=== PATIENT | male | born 1985 | race Two or more races ===

== ENCOUNTER 2024-06-08 12:57 | Inpatient (IN) | payer BC, SELFPAY ==
[2024-06-08 13:08] VITALS: PULSE 83; RESP 20; O2SAT 98
--- NOTE | 2024-06-08 13:26 | XR_ITS ---
Examination: CT brain head without contrast. 2-D sagittal coronal reconstructions Date and time of exam:June 08, 2024 1345 hours INDICATIONS: Onset severe dizziness today CTDI: vol (mGy):4059 59 1187 Technique: Multiple CT axial sections of the brain have been obtained, 5 mm slice thickness. Contrast has not been administered. 2-D sagittal, coronal reconstructions have been obtained Low dose protocols were performed. One or more of the following dose reduction techniques were used; automated exposure control, adjustment of the mA and/or KV according to patient size, use of iterative reconstruction technique. Findings: No significant ventricular enlargement. Intra-axial or extra-axial hemorrhage density is not seen. No mass effect or midline shift Basal cisterns are not remarkable. Fourth ventricle is midline. Cranial vault intact. Impression: Negative for acute hemorrhage, mass effect or midline shift Advise clinical correlation follow-up accordingly
--- NOTE | 2024-06-08 13:26 | XR_ITS ---
Examination: PA chest single view TECHNIQUE: Upright PA chest single view Exam date and time: June 08, 2024 1447 hours INDICATIONS: Onset chest pain today. FINDINGS: Mild prominence of ventricle No pulmonary edema Intact osseous structures IMPRESSION: No pneumonia or pulmonary edema
--- NOTE | 2024-06-08 13:26 | EKG_ITS ---
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
--- NOTE | 2024-06-08 13:26 | PD.EDRME ---
Rapid Medical Screening Exam RME Arrival date/time: 06/08/24 12:57 38-year-old male with diabetes on Mounjaro currently under treatment for UTI presents emergency department today with complaints of syncopal episode today Chief Complaint: Syncope / Near Syncope
[2024-06-08 13:27] VITALS: BP 104/71; PULSE 87; RESP 16; TEMP 36.9; O2SAT 99; BMI 34.2
[2024-06-08 14:00] LABS: Basophils % (Auto) 0 % (0-2.5); Eosinophils % (Auto) 0 % (0-10); Hematocrit 38.9 % (41.0-53.0); Hemoglobin 13.7 g/dL (13.5-16.0); Immature Granulocytes % (Auto) 0 % (0-0); Immature Granulocytes Auto 0.06 Thou/mm3 (0.00-0.00); Lymphocytes # (Auto) 2.3 Thou/mm3 (1.0-4.8); Lymphocytes % (Auto) 16 % (10-50); Mean Corpuscular HGB Conc 35.2 g/dl (31.0-37.0); Mean Corpuscular Hemoglobin 27.8 pg (25.0-35.0); Mean Corpuscular Volume 79 fL (80-100); Monocytes # (Auto) 1.3 Thou/mm3 (0.0-0.8); Monocytes % (Auto) 9 % (0-12); Neutrophils # (Auto) 10.6 Thou/mm3 (1.8-7.7); Neutrophils % (Auto) 74 % (37-80); Nucleated Red Blood Cell % 0 /100 WBC (0); Platelet Count 225 Thou/mm3 (140-440); RDW Standard Deviation 38.1 fL (35.1-43.9); Red Blood Count 4.93 Miln/mm3 (4.50-5.90); White Blood Count 14.4 Thou/mm3 (3.8-10.6)
[2024-06-08 14:10] LABS: Glucose Estimated Average 88 mg/dL (80-131); Hemoglobin A1C 4.7 % Hgb (4.8-6.0)
[2024-06-08 14:28] LABS: Alanine Aminotransferase 50 U/L (10-49); Albumin/Globulin Ratio 1.5 (1.2-2.2); Alkaline Phosphatase 88 U/L (46-116); Anion Gap 6 (7-16); Aspartate Amino Transferase 38 U/L (0-34); BUN/Creatinine Ratio 21 Ratio (12-20); Bilirubin,Total 0.6 mg/dL (0.3-1.2); Blood Urea Nitrogen 21 mg/dL (9-23); Calcium 9.1 mg/dL (8.3-10.6); Calcium (Corrected) 9.1 mg/dL (8.5-10.1); Carbon Dioxide 27.5 mMol/L (20.0-31.0); Chloride 103 mMol/L (98-107); Estimated Creatinine Clearance 114.8 mL/min (>60); Globulin 2.7 gm/dL (2.3-3.5); Glucose 105 mg/dL (74-106); Osmolality,Calculated 274 (275-295); Potassium 3.4 mMol/L (3.4-5.1); Sodium 136 mMol/L (136-145); Total Protein 6.7 gm/dL (5.7-8.2); Troponin I < 0.020 ng/mL (0.0-0.045); eGFR > 60 See Note
[2024-06-08 15:08] LABS: Collection Type, Urine Clean Catch
[2024-06-08 15:29] LABS: Bacteria,Urine 4+; Bilirubin,Urine Negative (Negative); Blood,Urine 1+ (Negative); Clarity,Urine Turbid (Clear/Hazy); Color,Urine Yellow (Lt Yel-Yel); Glucose, Urine Negative (Negative); Hyaline Casts,Urine < 1 /hpf (0-1); Ketones,Urine Negative (Negative); Leukocyte Esterase,Urine Positive (Negative); Nitrite,Urine Positive (Negative); Protein,Urine 2+ (Neg - Trace); RBC,Urine 7 /hpf (0-3); Specific Gravity,Urine 1.026 (1.001-1.035); Squamous Epithelial Cell,Urine < 1 /hpf (0-5); WBC,Urine 368 /hpf (0-5)
[2024-06-08 16:00] LABS: Culture Indicated,Urine Yes
[2024-06-08 17:22] LABS: Lactate (Lactic Acid) 1.7 mMol/L (0.4-2.0)
--- NOTE | 2024-06-08 17:32 | EDNOTE_ITS ---
<Statement entered by Jessi Camarena MD - 06/17/24 19:36> I, Jessi Camarena MD, have reviewed the history, exam, and assessment of the patient. I have evaluated the patient independently and agree with the plan of care documented by [ ]. All diagnostic studies were reviewed and discussed. I confirm the diagnosis as documented by the Resident. I was present during the Medical Decision Making for this patient. The patient's plan of care was created between myself and the Resident and consistent with our discussion of the patient's case. ED Syncope RME/HPI General Chief Complaint: Syncope / Near Syncope Stated Complaint: SYNCOPAL EPISODE / LOC; RECENT UTI Time Seen by Provider: 06/08/24 18:27 Arrival date/time: 06/08/24 12:57 RME / HPI RME / HPI narrative: 06/08/24 12:57 38-year-old male with diabetes on Mounjaro currently under treatment for UTI presents emergency department today with complaints of syncopal episode today. --------- Main ED Evaluation: Patient is a 38-year-old male with past medical history of obesity and prediabetes who presented to the ED today with syncopal episode today while he was outside of a [employer]. Patient states he thinks he had momentary loss of consciousness and he was helped by bystanders and had hit the back of his head, now has a palpable bump but denies any head pain or headache. Patient states that he did feel quite dehydrated today and did not have as much to eat or drink. Part of this is secondary to the Mounjaro that he has been on and notes more than 50 lb weight loss in the past 1 year. About 1 week back on 05/31, patient had started feeling some UTI symptoms with dysuria and darker colored urine. He started having fevers and chills especially notable at night starting 4 days ago. Patient reports he has been on amoxicillin for the last 20 days due to recent crown infections and wisdom teeth extractions. Yesterday, he saw his PCP for the UTI and was prescribed nitrofurantoin which he just started today. Otherwise, the patient is denying any nausea, vomiting, abdominal pain, groin pain, flank pain, hematuria, chest pain, or shortness of breath. complaint: collapsed Onset (ago): minute(s) Duration of episode: 1 Prodromal symptoms: lightheaded Witnessed: yes - by bystander Context: recent illness Injuries sustained associated with event: head Current symptoms: back to baseline Related Data Allergies Allergy/AdvReac Type Severity Reaction Status Date / Time No Known Allergies Allergy Verified 06/08/24 21:10 Review of Systems Review of Systems Systems Reviewed: All systems reviewed, normal except as documented ED Exam Narrative Physical exam: Physical Exam General: Awake and in no acute distress. Conversational and non-toxic appearing. HEENT: Normocephalic, atraumatic, mucous membranes moist. Heart: Regular rate and rhythm, no murmurs. Lungs: Clear to auscultation with no wheezing or crackles. Abdomen: Soft, nondistended, nontender, positive bowel sounds. ?No guarding or rebound tenderness. Back: No CVA tenderness. Neurologic: Alert and oriented x3, no gross neurological deficit, and patient able to move all 4 extremities. Extremities: No edema. Skin: No rash or ecchymoses. Course Quality Measures none Orders Category Date Time Status COVID-19 Screening Questionnaire NOW Care 06/08/24 19:53 Active Decision to Admit X1 Care 06/08/24 19:53 Active EKG (ED ONLY) *Do not use* NOW Care 06/08/24 13:[address] abdomen pelvis wo con Stat Exams 06/08/24 17:[address] head/brain wo con Stat Exams 06/08/24 13:26 Completed EKG (ED Only) Stat Exams 06/08/24 13:26 Draft XR chest 1V portable Stat Exams 06/08/24 13:26 Completed A1C [Glycohemoglobin w (eAG)] Stat Lab 06/08/24 13:40 Completed Blood Culture (Lab) Stat Lab 06/08/24 16:58 Received CBC Stat Lab 06/08/24 13:40 Completed Chlamydia/GC/TV - PCR Stat Lab 06/08/24 Ordered Comprehensive Metabolic Panel Stat Lab 06/08/24 13:40 Completed Lactate (Lactic Acid) Stat Lab 06/08/24 16:58 Completed Procalcitonin Stat Lab 06/08/24 16:58 Completed Troponin I Stat Lab 06/08/24 13:40 Completed UA, C/S IF [Urinalysis, C/S if Indicated] Stat Lab 06/08/24 14:55 Completed Urine Culture Stat Lab 06/08/24 14:55 Received Acetaminophen Tab [Tylenol ES Tab] Med 06/08/24 18:15 Discontinued 1,000 mg PO X1 ONE Ketorolac Inj [Toradol Inj] Med 06/08/24 18:28 Discontinued 30 mg IVP X1 ONE Sodium Chloride 0.9% 1000 ml [Ns] 1,000 ml Med 06/08/24 16:29 Discontinued IV 999 mls/hr cefTRIAXone [Rocephin] 1,000 mg Med 06/08/24 16:31 Discontinued Sodium Chloride 0.9% [Ns] 50 ml IV X1 Vital Signs Vital signs: Vital Signs Temperature 98.4 F 06/08/24 13:27 Pulse Rate 87 06/08/24 13:27 Respiratory Rate 16 06/08/24 13:27 Blood Pressure 104/71 06/08/24 13:27 Pulse Oximetry (%) 99 06/08/24 13:27 Oxygen Delivery Method Room Air 06/08/24 13:27 Procedures -ED EKG Interpretation #1: Date of EK06/08/24 Time of EK:31 Rate: 91 Interpretation: Interpreted by me EKG Impression: Normal sinus rhythm Syncope MDM Narrative MDM Narrative:: Workup reveals positive UA for UTI and leukocytosis. Sepsis alert was called at 17:53 due to temperature 102, pulse rate 108, leukocytosis of 14.4. Patient to be given IV fluids and IV ceftriaxone. 18:00 Care of the patient will be handed off to the evening provider, Dr. Adames, to follow up on CT abdomen/pelvis result. Patient data External records reviewed:: None Clinical information provided by:: patient Social determinants that could affect healthcare access:: none Patient has the following chronic illnesses:: None How is presenting disease/condition affected by chronic disease/condition?: uneffected by Evaluation data The following diagnostics were reviewed and interpreted by me:: lab results and radiology exam(s) Lab and/or radiology exams considered but not ordered:: Ordered Interpretation Summary: CT brain head without contrast. Findings: No significant ventricular enlargement. Intra-axial or extra-axial hemorrhage density is not seen. No mass effect or midline shift Basal cisterns are not remarkable. Fourth ventricle is midline. Cranial vault intact. Impression: Negative for acute hemorrhage, mass effect or midline shift Advise clinical correlation follow-up accordingly Chest X-Ray: Negative for pneumonia, according to my interpretation. Medications / Prescriptions Medications or Prescriptions considered but not ordered:: Given Medication administrations:: Medication Administration History Acetaminophen (Acetaminophen 325 Mg Tablet) 650 mg PO Q6H PRN PRN Reason: PAIN SCALE 1-3 (mild Stop: 07/08/24 20:43 Acetaminophen (Acetaminophen 325 Mg Tablet) 650 mg PO Q6H PRN PRN Reason: Fever >100 Stop: 07/08/24 20:43 Dextrose (Dextrose 50%-Water Inj 50 Ml Syringe) 25 ml IV Q15MIN PRN PRN Reason: BG 50-70 responsive npo pt Stop: 07/08/24 20:47 Dextrose (Dextrose 50%-Water Inj 50 Ml Syringe) 50 ml IV Q15MIN PRN PRN Reason: BG <50 OR BG <70 & pt unresponsive Stop: 07/08/24 20:47 Glucagon (Glucagon Inj 1 Mg Vial) 1 mg IM Q15MIN PRN PRN Reason: BG <70, and no IV access Ceftriaxone Sodium/Dextrose (Rocephin/D5w 1gm Iv Premix) 50 mls @ 100 mls/hr IV QDAY CHRIS Stop: 06/16/24 08:59 Insulin Human Lispro (Insulin Lispro (Admelog) 1 Unit/0.01 Ml Unit) 0 unit SC [facility]; Protocol Stop: 07/08/24 20:59 Last Admin: 06/08/24 21:14 Dose: Not Given Documented By: Non-Admin Reason: Glucose, LOW Comments: no insulin given FSBS below sliding scale Ondansetron HCl (Ondansetron Inj 2 Mg/Ml Inj 2 Ml) 4 mg IV Q6H PRN; Protocol PRN Reason: NAUSEA OR VOMITING Stop: 07/08/24 20:43 Discontinued Medications Acetaminophen (Acetaminophen 500 Mg Tablet) 1,000 mg PO X1 ONE Stop: 06/08/24 18:16 Last Admin: 06/08/24 18:46 Dose: 1,000 mg Documented By: Sodium Chloride (Ns) 1,000 mls @ 999 mls/hr IV .Q1H1M ONE Stop: 06/08/24 17:29 Last Infusion: 06/08/24 20:47 Dose: Infused Documented By: Admin: 06/08/24 18:46 Dose: 999 mls/hr Documented By: Ceftriaxone Sodium 1,000 mg/ (Sodium Chloride) 50 mls @ 100 mls/hr IV X1 ONE Stop: 06/08/24 17:00 Last Infusion: 06/08/24 20:47 Dose: Infused Documented By: Admin: 06/08/24 19:03 Dose: 100 mls/hr Documented By: SF Ketorolac Tromethamine (Ketorolac Inj 30 Mg/Ml Vial) 30 mg IVP X1 ONE Stop: 06/08/24 18:29 Last Admin: 06/08/24 19:02 Dose: 30 mg Documented By: SF Given Consultations Consultation(s) initiated? (list below): No Diagnosis Syncope Differential Diagnosis: other Most likely diagnosis given after review of the tests above:: Syncope secondary to hypoglycemia, sepsis, UTI Admission Indicated Admission indicated?: not indicated Admission Request Was there a request for admission?: No Disposition Plan Disposition Plan: other (specify) Discharge Plan Plan Patient Disposition: Admit Acute Care w/in Hospital Problem List Clinical Impression: Acute UTI, Sepsis, Acute pyelonephritis
[2024-06-08 17:51] VITALS: BP 149/75; PULSE 108; RESP 21; TEMP 38.9; O2SAT 97
--- NOTE | 2024-06-08 17:53 | XR_ITS ---
Examination: CT abdomen and pelvis without contrast. Coronal 3-D reconstructions. Sagittal 2-D reconstructions. Date and time of exam:May 1829 hrs. Indications: Urinary tract infections beginning 3 days ago, with sepsis today CTDI: vol (mGy): 9.72 DLP: (mGycm): 631 Technique: Axial images of the abdomen have been obtained, 3 mm slice thickness Intravenous contrast material has not been administered. Low dose protocols were performed. One or more of the following dose reduction techniques were used; automated exposure control, adjustment of the mA and/or KV according to patient size, use of iterative reconstruction technique. Findings: No focal liver or splenic lesions Hepatomegaly 22 cm No pancreatic or adrenal mass Mild bilateral perinephric stranding Aorta normal size Normal appendix No renal or ureteral calculi, no hydronephrosis No prostatomegaly No bladder mass or bladder calculi. Grade 1 spondylolisthesis L5 on S1 with moderate degenerative disc disease at this level Impression: Hepatomegaly 22 cm Bilateral perinephric stranding, consider urinary tract infection No hydronephrosis or ureteral calculi No bladder mass or bladder calculi
[2024-06-08 17:54] LABS: Procalcitonin 0.31 ng/ml (0.0-0.49)
--- NOTE | 2024-06-08 17:56 | PC.NURSE ---
Sepsis alert called on patient at 1753. FSBS check at same time 61. [place] juice given. patient shaking but undetermined if from glucose or temperature. Patient alert and orientedx4. Provider aware.
--- NOTE | 2024-06-08 18:02 | PD.EDADDENDU ---
Emergency Room Addendum <Sophia Pollard - Last Filed: 06/08/24 19:49> Addendum Narrative: I took over the care from Dr. Ellington, attending Dr. Camarena at 6 PM on 06/08/2024, see her notes for complete H&P and ED course. Please refer to the emergency department record for history and examination from initial visit. I reviewed all diagnostic test results. My interpretation of the EKG is My interpretation of the chest x-ray is My review of the CT report is Blood tests and urine tests At this point, diagnoses include Treatment here included Significant improvement I discussed the case with our hospitalist. About the presentation and exam and diagnostics and treatments here. And need of further care in the hospital. Will accept the patient. <Reza Adames MD - Last Filed: 06/08/24 19:55> Addendum Narrative: I took over the care from Dr. Ellington (attending Dr. Camarena) at 6 PM on 06/08/2024, see her notes for complete H&P and ED course. I reviewed all diagnostic test results. Remarkable for UTI and pyelonephritis and sepsis. Treatment here included IV fluid and Tylenol and Toradol and Rocephin. I discussed the case with our hospitalist. About the presentation and exam and diagnostics and treatments here. And need of further care in the hospital. Will accept the patient. Reza Adames MD
[2024-06-08 18:46] VITALS: TEMP 38.9
[2024-06-08] MEDS: ACETAMINOPHEN 500 MG TABLET 1000 MG PO (18:46)
[2024-06-08] MEDS: SODIUM CHLORIDE 0.9% 1000 ML 1,000 ML 999 ML IV (18:46)
[2024-06-08 19:02] VITALS: TEMP 38.9
[2024-06-08] MEDS: KETOROLAC INJ 30 MG/ML VIAL IVP (19:02)
--- NOTE | 2024-06-08 20:49 | ESHP_ITS ---
Documentation for date of: 06/08/24 [facility] History of Present Illness History of present illness: This is a 38-year-old male with PMHx of obesity/?T2DM on MOUNJARO, presenting with 2 weeks of urinary symptoms. He states 2 weeks of waxing and waning burning sensation while urinating, and dark/cloudy urine. Has had a UTI about 10 years ago, believes symptoms felt the same. He has been taking IBUPROFEN and drinking extra fluids which slightly helped. Symptoms have improved however worsened over the last 3 days. Today he was feeling dizzy, lightheaded, had fever and sweats that started this morning at work and worsening dysuria. He saw his PCP this morning who started NITROFURANTOIN. He took 1 dose but decided to come in given acute worsening of symptoms. Denies headaches, loss of consciousness, fall or trauma, chest pain, shortness of breath, abdominal pain, N/V/D/C, or abnormal changes in his weight. ED COURSE: T102, HR 102, BP 120/69, RR 20, satting 97% on room air. WBC 14.4, Hgb 13.7, MCV 79. Chemistry showed AST 38, ALT 50, otherwise within normal limits including tropes, lactic acid, and Pro-Calc. UA positive for UTI. Head CT with negative for acute pathology. CXR negative for active pulmonary disease. CT abdomen showed bilateral perinephric stranding, hepatomegaly. Negative influenza A/B. PMHx: T2DM PSHx: None MEDS: No chronic medication. ALLERGIES: NKA FHx: No relevant family history. SH: Occassional alcohol use, no tobacco or drug use. Last sexually active 6 months ago. Exam Vital Signs Temp Pulse Resp BP Pulse Ox O2 Del Method 102.0 F H 108 H 21 H 149/75 H 97 Room Air 06/08/24 19:02 06/08/24 17:51 06/08/24 17:51 06/08/24 17:51 06/08/24 17:51 06/08/24 17:51 Narrative Exam Mostly normal exam. GENERAL * Normal-appearing adult male, NAD, diaphoretic. HEENT * NCAT.?MAGGIE. Oral mucosa is moist. Patent Nares NECK * Supple, nontender, no thyromegaly, no meningismus, no JVD, no step offs CHEST * RRR, no m/g/r * CTAB, no w/r/r. Symmetrical chest rise. No intercostal subcostal retraction * Atraumatic, nontender, no crepitus, symmetrical expansion. ABDOMEN * Soft, flat, nontender. No guarding/rebound tenderness/masses. * Bowel sounds presents EXTREMITIES * Nontender, no cyanosis, no edema * No edema/cyanosis.? SKIN * Warm and dry, no jaundice/rashes. NEUROMUSCULAR * No lumbar or midline, no CVA, no paraspinal muscle spasm or tenderness. * Moves all 4 extremities well, with full ROM and good CSM. * GA x4, CN II-XII grossly intact. * No focal neurologic deficits. PSYCHIATRY * Normal mood and affect, cooperative, no SI or HI or hallucinations. Results: Labs 06/08/24 13:40 06/08/24 13:40 Labs: Short CBC 06/08/24 Range/Units 13:40 WBC 14.4 H (3.8-10.6) Thou/mm3 Hgb 13.7 (13.5-16.0) g/dL Hct 38.9 L (41.0-53.0) % Plt Count 225 (140-440) Thou/mm3 BMP 06/08/24 13:40 Sodium 136 Potassium 3.4 Chloride 103 Carbon Dioxide 27.5 BUN 21 Creatinine 1.0 Glucose 105 Calcium 9.1 Cardiac Enzymes 06/08/24 Range/Units 13:40 Troponin I < 0.020 (0.0-0.045) ng/mL Liver Function 06/08/24 Range/Units 13:40 Total Bilirubin 0.6 (0.3-1.2) mg/dL AST 38 H (0-34) U/L ALT 50 H (10-49) U/L Alkaline Phosphatase 88 (46-116) U/L Albumin 4.0 (3.5-5.0) gm/dL Urine 06/08/24 Range/Units 14:55 Urine Color Yellow (Lt Yel-Yel) Urine Clarity Turbid A (Clear/Hazy) Urine pH 6.0 (5.0-7.0) Ur Specific [place] 1.026 (1.001-1.035) Urine Protein 2+ A (Neg - Trace) Urine Glucose (UA) Negative (Negative) Quality Measures Quality Measures none Medications Home Medications and Allergies Home Medications ?Medication ?Instructions ?Recorded ?Confirmed ?Type lorazepam 2 mg tablet 2 mg PO BID PRN anxiety 05/2906/09/24 History terbinafine HCl 250 mg tablet mg 06/09/24 History thyroid (pork) 120 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 120 mg PO .3x/week 06/09/24 History Thyroid) tirzepatide 15 mg/0.5 mL 15 mg subcut QWEEK 06/09/24 06/09/24 History subcutaneous pen injector (Mounjaro) Allergies Allergy/AdvReac Type Severity Reaction Status Date / Time No Known Allergies Allergy Verified 06/08/24 21:10 Visit Medications Discontinued Medications Acetaminophen (Acetaminophen 500 Mg Tablet) 1,000 mg PO X1 ONE Stop: 06/08/24 18:16 Last Admin: 06/08/24 18:46 Dose: 1,000 mg Sodium Chloride (Ns) 1,000 mls @ 999 mls/hr IV .Q1H1M ONE Stop: 06/08/24 17:29 Last Infusion: 06/08/24 20:47 Dose: Infused Ceftriaxone Sodium 1,000 mg/ (Sodium Chloride) 50 mls @ 100 mls/hr IV X1 ONE Stop: 06/08/24 17:00 Last Infusion: 06/08/24 20:47 Dose: Infused Ketorolac Tromethamine (Ketorolac Inj 30 Mg/Ml Vial) 30 mg IVP X1 ONE Stop: 06/08/24 18:29 Last Admin: 06/08/24 19:02 Dose: 30 mg Assessment & Plan Plan In summary: 38-year-old male with PMHx of obesity/?T2DM on MOUNJARO, admited for pyelonephritis. Sepsis secondary to pyelonephritis Lactic acidosis (resolved) Presenting with 2 weeks of dysuria, worsened over the last 3 days. New onset fever started today. Met 4/4 SIRS with EOD i.e. lactic acidosis resolved after 1.0 L NS. UA showed UTI. CT showed perinephric stranding bilaterally. Had a UTI 10 years ago. Low concern for STDs, last sexually active 6 months ago, denies penile discharge. ? Continue CEFTRIAXONE (06/08 to present) ? Will give another 2L NS bolus ? Pending blood and urine culture ? Daily labs T2DM Obesity Recently started on MOUNJARO for weight loss. States he has been diagnosed with diabetes, unclear if he is diabetic. A1c 4.7, GLUCOSE 105. ? INSULIN sliding scale ? Accu-Cheks ? Daily labs Mild transaminitis Hepatomegaly Mild LFT elevation likely in setting of sepsis. CT abdomen showed hepatomegaly 22 cm, likely incidental. Anticipate improvement with fluids. ? Daily CMP ? Consider further workup as indicated, for outpatient follow-up for hepatomegaly. Health maintenance Diet: CHO consistent GI prophylaxis: Not indicated DVT prophylaxis: LOVENOX Antibiotics: CEFTRIAXONE CODE STATUS: Full code Disposition: Treating UTI/sepsis, pending urine/blood culture Patient case was discussed with attending, Bhavik Jimenez MD. Eneida Marquez, PGYI
[2024-06-08 21:08] VITALS: BP 120/69; PULSE 102; RESP 20; TEMP 37.6; O2SAT 97
[2024-06-09] VITALS (12 sets, daily range): BP systolic 117–136; BP diastolic 64–82; PULSE 88–112; RESP 17–18; TEMP 36.9–39; O2SAT 97–99
[2024-06-09] MEDS: SODIUM CHLORIDE 0.9% 1000 ML 1,000 ML 999 ML IV ×2 (00:05→01:21)
[2024-06-09] MEDS: ACETAMINOPHEN 325 MG TABLET 650 MG PO ×3 (00:09→13:45)
--- NOTE | 2024-06-09 04:15 | PC.NURSE ---
urine specimen for chlamydia sent to lab.
[2024-06-09 05:38] LABS: Basophils % (Auto) 0 % (0-2.5); Eosinophils % (Auto) 0 % (0-10); Hematocrit 34.2 % (41.0-53.0); Hemoglobin 12.1 g/dL (13.5-16.0); Immature Granulocytes % (Auto) 0 % (0-0); Immature Granulocytes Auto 0.06 Thou/mm3 (0.00-0.00); Lymphocytes # (Auto) 2.3 Thou/mm3 (1.0-4.8); Lymphocytes % (Auto) 15 % (10-50); Mean Corpuscular HGB Conc 35.4 g/dl (31.0-37.0); Mean Corpuscular Hemoglobin 27.7 pg (25.0-35.0); Mean Corpuscular Volume 78 fL (80-100); Monocytes # (Auto) 1.8 Thou/mm3 (0.0-0.8); Monocytes % (Auto) 12 % (0-12); Neutrophils # (Auto) 11.6 Thou/mm3 (1.8-7.7); Neutrophils % (Auto) 73 % (37-80); Nucleated Red Blood Cell % 0 /100 WBC (0); Platelet Count 173 Thou/mm3 (140-440); RDW Standard Deviation 38.1 fL (35.1-43.9); Red Blood Count 4.37 Miln/mm3 (4.50-5.90); White Blood Count 15.8 Thou/mm3 (3.8-10.6)
[2024-06-09 06:10] LABS: Alanine Aminotransferase 34 U/L (10-49); Albumin, Serum 3.5 gm/dL (3.5-5.0); Albumin/Globulin Ratio 1.5 (1.2-2.2); Alkaline Phosphatase 79 U/L (46-116); Anion Gap 6 (7-16); Aspartate Amino Transferase 27 U/L (0-34); BUN/Creatinine Ratio 18 Ratio (12-20); Bilirubin,Total 0.6 mg/dL (0.3-1.2); Blood Urea Nitrogen 14 mg/dL (9-23); Calcium 8.5 mg/dL (8.3-10.6); Calcium (Corrected) 8.9 mg/dL (8.5-10.1); Chloride 107 mMol/L (98-107); Creatinine (Component) 0.8 mg/dL (0.6-1.3); Globulin 2.3 gm/dL (2.3-3.5); Glucose 102 mg/dL (74-106); Magnesium 1.5 mg/dL (1.6-2.6); Osmolality,Calculated 279 (275-295); Phosphorous 3.3 mg/dL (2.4-5.1); Potassium 3.7 mMol/L (3.4-5.1); Sodium 140 mMol/L (136-145); Total Protein 5.8 gm/dL (5.7-8.2); eGFR > 60 See Note
[2024-06-09] MEDS: INSULIN LISPRO (AdmeLOG) 1 UNIT/0.01 ML UNIT SC (07:35)
[2024-06-09] MEDS: cefTRIAXone/D5w 1gm IV premix 50 ML IV (08:37)
[2024-06-09] MEDS: Magnesium Sulfate 2 GM Ivpb 2 GM/50 ML BAG IV (08:38)
--- NOTE | 2024-06-09 09:28 | PC.SS ---
Patient Abiodun Brunson is a 38 Year old male admitted for Sepsis Pyelonephritis. SS met with patient at bedside to discuss discharge plan. Patient reports he lives at home with his son. Patient reports his mother, Lala Perry is her surrogate decision. Patient does not utilize any source of DME and able to complete ADL'S. Choice of pharmacy is [facility]. PCP is Dr. Srini valencia. 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 At time of discharge patient will return home. Family will provide transportation. Next of Kin: mother, Lala perry Discharge plan: home
[2024-06-09 09:42] LABS: Chlamydia trachomatis PCR Negative (Not Detect); Neisseria Gonorrhoeae DNA PCR Negative (Not Detect); Trichomonas Negative (Negative)
--- NOTE | 2024-06-09 14:32 | PC.SS ---
SS follow up note; Patient has been having fevers, Pending Cultures.
--- NOTE | 2024-06-09 17:11 | ESPR_ITS ---
<Statement entered by Deisy Cuenca MD - 06/09/24 17:37> I discussed with and supervised my co-resident involved in the care of this patient. I agree with the assessment and plan as documented above. Patient seen at bedside. Denies fever overnight. States is feeling better. urine culture grew gram negative rods. Will continue IV antibiotics and follow up cultures tomorrow. Deisy Cuenca MD PGY-3 Documentation for date of: 06/09/24 Subjective Subjective Interval history: Patient seen and examined at bedside. No major complaints, no events overnight. Dysuria has improved with no pain. Patient has remained afebrile, vitals stable. WBC is uptrended 15.8. Continue ceftriaxone for treatment of pyelonephritis. Urine cultures, blood cultures still pending. Exam Vital Signs Temp Pulse Resp BP Pulse Ox O2 Del Method 99.8 F 92 18 136/76 H 97 Room Air 06/09/24 14:45 06/09/24 12:00 06/09/24 12:00 06/09/24 12:00 06/09/24 12:06/09/24 12:00 Narrative Exam General: yound male, comfortable, No acute distress, cooperative HEENT: NCAT, No JVD noted. Mucosa moist. Pupils are equal and reactive to light bilaterally Cardiovascular: Normal S1 and S2. Regular rate and rhythm. Respiratory: Lungs are clear to auscultation bilaterally. No wheezing or crackles heard. Abdomen: Soft, nontender, not distended, normal bowel sounds. : no alexander, no CVA tenderness Skin: Warm to touch, dry, no rashes noted Musculoskeletal: No gross injuries. Able to move all 4 extremities. No pitting edema, tattoos on right arm. Neuro: Alert and oriented x3. No focal neuro deficits. Psych: Normal affect and mood Objective Labs 06/10/24 05:00 06/10/24 05:00 Labs: Laboratory Results - last 24 hr 06/08/24 06/08/24 06/09/24 04:00 16:58 05:25 WBC 15.8 H RBC 4.37 L Hgb 12.1 L Hct 34.2 L MCV 78 L MCH 27.7 MCHC 35.4 RDW Std Deviation 38.1 Plt Count 173 D Neut % (Auto) 73 Lymph % (Auto) 15 [place] % (Auto) 12 Eos % (Auto) 0 Baso % (Auto) 0 Neut # (Auto) 11.6 H Lymph # (Auto) 2.3 [place] # (Auto) 1.8 H Eos # (Auto) 0.0 Baso # (Auto) 0.0 Immature Gran # (Auto) 0.06 H Absolute Nucleated RBC 0.00 Immature Gran % 0 Nucleated RBC % 0 Sodium 140 Potassium 3.7 Chloride 107 Carbon Dioxide 27.0 Anion Gap 6 L BUN 14 Creatinine 0.8 Estim Creat Clear Calc 146.0 eGFR > 60 BUN/Creatinine Ratio 18 Glucose 102 Calculated Osmolality 279 Lactic Acid 1.7 Calcium 8.5 Corrected Calcium 8.9 Phosphorus 3.3 Magnesium 1.5 L Total Bilirubin 0.6 AST 27 ALT 34 Alkaline Phosphatase 79 Total Protein 5.8 Albumin 3.5 D Globulin 2.3 Albumin/Globulin Ratio 1.5 Procalcitonin 0.31 Chlam trachomat DNA PCR Negative N.gonorrhoeae DNA (PCR) Negative Trichomonas DNA Probe Negative Quality Measures Quality Measures none Assessment & Plan Assessment Current Active Medications: Generic Name Dose Route Start Last Admin Trade Name Freq PRN Reason Stop Dose Admin Acetaminophen 650 mg 06/08/24 20:44 06/09/24 06:13 Acetaminophen 325 Mg Tablet PO 07/08/24 20:43 650 mg Q6H PRN Administration PAIN SCALE 1-3 (mild Acetaminophen 650 mg 06/08/24 20:44 06/09/24 13:45 Acetaminophen 325 Mg Tablet PO 07/08/24 20:43 650 mg Q6H PRN Administration Fever >100 Dextrose 25 ml 06/08/24 20:48 Dextrose 50%-Water Inj 50 Ml Syringe IV 07/08/24 20:47 Q15MIN PRN BG 50-70 responsive npo pt Dextrose 50 ml 06/08/24 20:48 Dextrose 50%-Water Inj 50 Ml Syringe IV 07/08/24 20:47 Q15MIN PRN BG <50 OR BG <70 & pt unresponsive Glucagon 1 mg 06/08/24 20:48 Glucagon Inj 1 Mg Vial IM Q15MIN PRN BG <70, and no IV access Ceftriaxone Sodium/Dextrose 50 mls @ 100 mls/hr 06/09/24 09:00 06/09/24 08:37 Rocephin/D5w 1gm Iv Premix IV 06/16/24 08:59 100 mls/hr QDAY CHRIS Administration Insulin Human Lispro 0 unit 06/08/24 21:00 06/09/24 11:28 Insulin Lispro (Admelog) 1 Unit/0.01 Ml Unit SC 07/08/24 20:59 Not Given ACHS CHRIS Protocol Ondansetron HCl 4 mg 06/08/24 20:44 Ondansetron Inj 2 Mg/Ml Inj 2 Ml IV 07/08/24 20:43 Q6H PRN NAUSEA OR VOMITING Protocol Plan Abiodun Brunson 38-year-old male with PMHx of obesity/?T2DM on MOUNJARO, admited for sepsis 2/2 pyelonephritis. #Sepsis 2/2 to pyelonephritis Presenting with 2 weeks of dysuria, worsened over the last 3 days. New onset fever started today. Met 4/4 SIRS. UA showed UTI. CT showed perinephric stranding bilaterally. Had a UTI 10 years ago. Low concern for STDs, last sexually active 6 months ago, denies penile discharge. ? Continue CEFTRIAXONE (06/08 to present) -encourage oral intake ? Pending blood and urine culture ? Daily labs #Hx T2DM, controlled #Obesity Recently started on MOUNJARO for weight loss. States he has been diagnosed with diabetes, unclear if he is diabetic. A1c 4.7, GLUCOSE 105. ? INSULIN sliding scale ? Accu-Cheks ? Daily labs #Mild transaminitis #Hepatomegaly Mild LFT elevation likely in setting of sepsis. CT abdomen showed hepatomegaly 22 cm, likely incidental. Physical exam benign. Anticipate improvement with fluids. ? Daily CMP ? Consider further workup as indicated, for outpatient follow-up for hepatomegaly. Health maintenance Diet: CHO consistent GI prophylaxis: Not indicated DVT prophylaxis: Lovenox CODE STATUS: Full code Disposition: Treating UTI/sepsis, pending urine/blood culture The patient's management plan was discussed with my attending physician Dr. Chappell and senior Dr. Cuenca. Francisca Brock, PGY-1 Attending Provider Attestation/Addendum I have discussed and was present for the essential components of the history, physical examination, diagnosis, and treatment plan with the resident. I agree with the patient's care as documented by the resident and amended herein by me. Afshin Chappell DO. Although this document has been carefully reviewed, there may still be some phonetic and other typographical errors. These errors are purely grammatical due to imperfections in the software program and should not be construed in any way to compromise the substance of the patient's medical care during this visit.
[2024-06-10] VITALS: BP 121/64; PULSE 95; RESP 18; TEMP 36.8; O2SAT 97
[2024-06-10 04:00] VITALS: BP 120/68; PULSE 97; RESP 18; TEMP 36.3; O2SAT 98
[2024-06-10 06:06] LABS: Basophils % (Auto) 0 % (0-2.5); Eosinophils % (Auto) 0 % (0-10); Hematocrit 33.9 % (41.0-53.0); Immature Granulocytes % (Auto) 0 % (0-0); Immature Granulocytes Auto 0.05 Thou/mm3 (0.00-0.00); Lymphocytes # (Auto) 3.2 Thou/mm3 (1.0-4.8); Lymphocytes % (Auto) 22 % (10-50); Mean Corpuscular HGB Conc 35.4 g/dl (31.0-37.0); Mean Corpuscular Volume 79 fL (80-100); Monocytes # (Auto) 1.5 Thou/mm3 (0.0-0.8); Monocytes % (Auto) 10 % (0-12); Neutrophils # (Auto) 10.1 Thou/mm3 (1.8-7.7); Neutrophils % (Auto) 68 % (37-80); Nucleated Red Blood Cell % 0 /100 WBC (0); Platelet Count 216 Thou/mm3 (140-440); RDW Standard Deviation 37.6 fL (35.1-43.9); Red Blood Count 4.29 Miln/mm3 (4.50-5.90); White Blood Count 14.9 Thou/mm3 (3.8-10.6)
[2024-06-10 06:40] LABS: Alanine Aminotransferase 37 U/L (10-49); Albumin, Serum 3.6 gm/dL (3.5-5.0); Albumin/Globulin Ratio 1.5 (1.2-2.2); Alkaline Phosphatase 81 U/L (46-116); Anion Gap 7 (7-16); Aspartate Amino Transferase 24 U/L (0-34); BUN/Creatinine Ratio 15 Ratio (12-20); Bilirubin,Total 0.6 mg/dL (0.3-1.2); Blood Urea Nitrogen 12 mg/dL (9-23); Calcium 8.8 mg/dL (8.3-10.6); Calcium (Corrected) 9.1 mg/dL (8.5-10.1); Carbon Dioxide 27.6 mMol/L (20.0-31.0); Chloride 104 mMol/L (98-107); Creatinine (Component) 0.8 mg/dL (0.6-1.3); Globulin 2.4 gm/dL (2.3-3.5); Glucose 88 mg/dL (74-106); Magnesium 1.9 mg/dL (1.6-2.6); Osmolality,Calculated 276 (275-295); Phosphorous 3.2 mg/dL (2.4-5.1); Potassium 3.5 mMol/L (3.4-5.1); Sodium 139 mMol/L (136-145); eGFR > 60 See Note
[2024-06-10 08:00] VITALS: BP 131/75; PULSE 84; RESP 19; TEMP 36.1; O2SAT 98
[2024-06-10] MEDS: cefTRIAXone 1,000 MG in SODIUM CHLORIDE 0.9% (P) 50 ML 100 MG IV (09:26)
--- NOTE | 2024-06-10 09:48 | PD.RESPRO ---
Documentation for date of: 06/10/24 Subjective Subjective Interval history: Patient seen and examined at bedside. States that he is doing much better today. Remains afebrile. Urine cultures positive for Ecoli. Leukocytosis small improvement to 14.9. Continue ceftriaxone. Prelminary blood cultures negative. Anticipate discharge next 24hrs pending 48hr culture. Exam Vital Signs Temp Pulse Resp BP Pulse Ox O2 Del Method 97.0 F 84 19 131/75 H 98 Room Air 06/10/24 08:00 06/10/24 08:00 06/10/24 08:00 06/10/24 08:00 06/10/24 08:00 06/10/24 08:00 Objective Labs 06/10/24 05:00 06/10/24 05:00 Labs: Laboratory Results - last 24 hr 06/10/24 05:00 WBC 14.9 H RBC 4.29 L Hgb 12.0 L Hct 33.9 L MCV 79 L MCH 28.0 MCHC 35.4 RDW Std Deviation 37.6 Plt Count 216 D Neut % (Auto) 68 Lymph % (Auto) 22 [place] % (Auto) 10 Eos % (Auto) 0 Baso % (Auto) 0 Neut # (Auto) 10.1 H Lymph # (Auto) 3.2 [place] # (Auto) 1.5 H Eos # (Auto) 0.0 Baso # (Auto) 0.0 Immature Gran # (Auto) 0.05 H Absolute Nucleated RBC 0.00 Immature Gran % 0 Nucleated RBC % 0 Sodium 139 Potassium 3.5 Chloride 104 Carbon Dioxide 27.6 Anion Gap 7 BUN 12 Creatinine 0.8 Estim Creat Clear Calc 146.0 eGFR > 60 BUN/Creatinine Ratio 15 Glucose 88 Calculated Osmolality 276 Calcium 8.8 Corrected Calcium 9.1 Phosphorus 3.2 Magnesium 1.9 Total Bilirubin 0.6 AST 24 ALT 37 Alkaline Phosphatase 81 Total Protein 6.0 Albumin 3.6 Globulin 2.4 Albumin/Globulin Ratio 1.5 Quality Measures Quality Measures none Assessment & Plan Assessment Current Active Medications: Generic Name Dose Route Start Last Admin Trade Name Freq PRN Reason Stop Dose Admin Acetaminophen 650 mg 06/08/24 20:44 06/09/24 06:13 Acetaminophen 325 Mg Tablet PO 07/08/24 20:43 650 mg Q6H PRN Administration PAIN SCALE 1-3 (mild Acetaminophen 650 mg 06/08/24 20:44 06/09/24 13:45 Acetaminophen 325 Mg Tablet PO 07/08/24 20:43 650 mg Q6H PRN Administration Fever >100 Dextrose 25 ml 06/08/24 20:48 Dextrose 50%-Water Inj 50 Ml Syringe IV 07/08/24 20:47 Q15MIN PRN BG 50-70 responsive npo pt Dextrose 50 ml 06/08/24 20:48 Dextrose 50%-Water Inj 50 Ml Syringe IV 07/08/24 20:47 Q15MIN PRN BG <50 OR BG <70 & pt unresponsive Glucagon 1 mg 06/08/24 20:48 Glucagon Inj 1 Mg Vial IM Q15MIN PRN BG <70, and no IV access Ceftriaxone Sodium 1,000 mg/ 50 mls @ 100 mls/hr 06/10/24 09:00 06/10/24 09:26 Sodium Chloride IV 06/16/24 08:59 100 mls/hr QDAY CHRIS Administration Ondansetron HCl 4 mg 06/08/24 20:44 Ondansetron Inj 2 Mg/Ml Inj 2 Ml IV 07/08/24 20:43 Q6H PRN NAUSEA OR VOMITING Protocol
--- NOTE | 2024-06-10 11:39 | PD.RESDS ---
Planned Discharge Date 06/10/24 DS: Providers Provider Date of admission: 06/08/24 20:44 Primary care physician: Srini Vila DO Admitting Provider: Bhavik Jimenez MD Attending Provider on Admission: Marcin Calvin MD Consults: 06/09/24 01:11 Referral Respiratory Therapy Routine Comment: Attending Provider on DC: Francisca Brock MD Discharging Provider: Francisca Brock MD DS: Diagnosis Problem List Completed Was Problem List Reviewed/Reconciled?: Yes Hospital Course Hospital Course Hospital course: Reason for hospitalization: sepsis 2/2 pyelonephritis Abiodun Brunson is 38 yr male with PMH of obesity, resolved T2DM who presented to [facility] ED on 06/08/24 due to 2 weeks of urinary discomfort. Patient was admitted for sepsis secondary to pyelonephritis. He was experiencing dysuria, cloudy urine, subjective fevers. In ED, patient had fever (102), leukocytosis (14.4), UA positive for UTI. CT abdomen showed bilateral perinephric stranding, hepatomegaly. Patient was started on ceftriaxone for E. coli UTI. Blood cultures were negative and he remained afebrile. Patient is now in stable condition and ready for discharge. Recommendations were given as below. Discharge Recommendations: Continue taking ciprofloxacin 500 mg twice a day for 7 days. Follow up with PCP in 1-2 weeks. Return to ED if symptoms worsen. Hospital Diagnoses: #Sepsis 2/2 to pyelonephritis #Ecoli UTI #Hx T2DM, controlled #Obesity #Mild transaminitis #Hepatomegaly The patient's management plan was discussed with my attending physician Dr. Chappell and senior Dr. Cuenca. Francisca Brock MD, PGY-1 Time Spent with Patient Time attestation: Total time spent providing and/or coordinating discharge services: Time spent: Greater than 30 minutes Exam Vital Signs Temp Pulse Resp BP Pulse Ox O2 Del Method 97.0 F 84 19 131/75 H 98 Room Air 06/10/24 08:00 06/10/24 08:00 06/10/24 08:00 06/10/24 08:00 06/10/24 08:00 06/10/24 08:00 Narrative Exam General: yound male, comfortable, No acute distress, cooperative HEENT: NCAT, No JVD noted. Mucosa moist. Pupils are equal and reactive to light bilaterally Cardiovascular: Normal S1 and S2. Regular rate and rhythm. Respiratory: Lungs are clear to auscultation bilaterally. No wheezing or crackles heard. Abdomen: Soft, nontender, not distended, normal bowel sounds. : no alexander, no CVA tenderness Skin: Warm to touch, dry, no rashes noted Musculoskeletal: No gross injuries. Able to move all 4 extremities. No pitting edema, tattoos on right arm. Neuro: Alert and oriented x3. No focal neuro deficits. Psych: Normal affect and mood Discharge Plan Plan Patient Disposition: HOME (Self Care) Patient condition on transfer: Stable Prescriptions/Referrals Prescriptions/Med Rec: New ciprofloxacin HCl 500 mg tablet 500 mg PO BID Qty: 14 0RF No Action Mounjaro 15 mg/0.5 mL pen injector 15 mg SUBCUT QWEEK Patient Comments: INJECT 15MG SUBCUTANEOUSLY ONE TIME PER WEEK DIRECTED Rx Instructions: QSunday morning lorazepam 2 mg tablet 2 mg PO BID PRN (Reason: anxiety) Patient Comments: TAKE 1 TABLET BY MOUTH TWICE A DAY NEEDED FOR ANXIETY -Pt takes 1mg or 2mg BID PRN thyroid (pork) [[employer] Thyroid] 120 mg tablet 120 mg PO .3x/week Rx Instructions: takes three times a week Referrals: Srini Vila DO [Primary Care Provider] - Patient/Caregiver Discharge Instructions Other Discharge Activity Instructions:: Continue taking ciprofloxacin 500 mg twice a day for 7 days. Follow up with PCP in 1-2 weeks. Return to ED if symptoms worsen. Education Materials: Anatomy of the Male Urinary Tract Print Language: Luxembourgish Stand Alone Forms: [facility] Award Info., Patient Portal Info Letter Discharge Order Discharge Orders: Discharge (Routine); Ordered 06/10/24 Ordered By: Francisca Brock Quality Discharge Quality Measures VTE prophylaxis Attestestation MD Attestation I have discussed and was present for the essential components of the discharge history, physical examination, diagnosis, and discharge treatment plan with the resident. I agree with the patient's discharge care as documented by the resident and amended herein by me. Afshin Chappell DO. The patient understood all discharge instructions, all questions were answered satisfactorily. The patient was instructed to return to the Emergency Department is symptoms worsened or persisted. Patient was stable, afebrile, tolerating p.o. intake and ambulatory time of discharge. See resident note above for additional details in regards to antibiotic course and duration for UTI/pyelonephritis. Although this document has been carefully reviewed, there may still be some phonetic and other typographical errors. These errors are purely grammatical due to imperfections in the software program and should not be construed in any way to compromise the substance of the patient's medical care during this visit.
[2024-06-10 12:00] VITALS: BP 125/69; PULSE 77; RESP 18; TEMP 36.2; O2SAT 100
== END 2024-06-10 15:05 | disposition home or self-care (01) | DRG 872 ==
LOC: SERX 19:54 → SERHOLD 21:08 → S3NX 06-09 00:28
PROVIDERS: Emergency Medicine; Nurse Practitioner Primary Care; Student in an Organized Health Care Education/Training Program; Admitting Provider Internal Medicine; Emergency Provider Emergency Medicine; PCP Family Medicine; Visit Provider Surgery
DX: A41.51 Sepsis due to Escherichia coli [E. coli] (principal); N10 Acute pyelonephritis; E87.20 Acidosis, unspecified; E66.9 Obesity, unspecified; E11.9 Type 2 diabetes mellitus without complications; Z68.35 Body mass index [BMI] 35.0-35.9, adult; R16.0 Hepatomegaly, not elsewhere classified; Z79.85 Long-term (current) use of injectable non-insulin antidiabetic drugs; Z79.899 Other long term (current) drug therapy
CPT/HCPCS: 36415; 70450; 71045; 74176; 80053; 81001; 83036; 83605; 83735; 84100; 84145; 84484; 85025; 87040; 87077; 87086; 87186; 87400; 87491; 87591; 87661; 93005; 96365; 96366; 96375; 99285; J0696; J1815; J1885; J3475; J7030; J7050; A9270